=== PATIENT | female | born 1970 | race Two or more races ===

== ENCOUNTER 2022-09-14 22:37 | Emergency (ER) | payer OTHER ==
[~2022-09-14] VITALS: Ht 167.6 cm; Wt 95.3 kg
[~2022-09-14 22:37] MED LIST: SINGULAIR 10MG10 MG PO; ULTRAM50 MG PO
[2022-09-14] MEDS ORDERED: ZOLOFT100 MG (23:29)
[2022-09-14] MEDS ORDERED: BUPAP 50 MG-301 EACH (23:29)
[2022-09-14] MEDS ORDERED: CLONAZEPAM2 MG (23:29)
[2022-09-14] MEDS ORDERED: SYNTHROID50 MCG (23:30)
[2022-09-14] MEDS ORDERED: RESTORIL15 MG (23:30)
== END 2022-09-15 03:31 | disposition home or self-care (01) ==
LOC: ER 22:37
DX: S06.89AA Other specified intracranial injury with loss of consciousness status unknown, initial encounter (principal); V29.108 Other motorcycle passenger injured in collision with unspecified motor vehicles in nontraffic accident; Y93.89 Activity, other specified; Y92.413 State road as the place of occurrence of the external cause; S50.312A Abrasion of left elbow, initial encounter; S80.812A Abrasion, left lower leg, initial encounter; Z88.6 Allergy status to analgesic agent; S22.39XA Fracture of one rib, unspecified side, initial encounter for closed fracture